=== PATIENT | female | born 1990 | race Caucasian/White ===

== ENCOUNTER 2016-04-08 16:26 | Emergency (ER) | payer OTHER ==
[~2016-04-08] VITALS: Ht 157.5 cm; Wt 62.0 kg
[~2016-04-08 16:26] MED LIST: IBUP-232 PO
[2016-04-08 16:40] VITALS: BP 131/80; PULSE 62; RESP 16; TEMP 98.8; O2SAT 98
[2016-04-08] MEDS ORDERED: BIRTH CONTROL PO (16:57)
[2016-04-08] MEDS ORDERED: SODIUM CHLOR 0.9% 1000 ML INJ 1,000 ML IV ONE (17:18)
[2016-04-08] MEDS ORDERED: SODIUM CHLORIDE 0.9% FLUSH 5 ML FLUSH IVF PRN (17:30)
[2016-04-08] MEDS ORDERED: METOCLOPRAMIDE HCL 10 MG/2 ML VIAL IVP ONE (17:30)
[2016-04-08] MEDS ORDERED: KETOROLAC TROMETHAMINE 30 MG/ML (IVP) VIAL IVP ONE (17:30)
--- NOTE | 2016-04-08 17:31 | PD ---
HPI Chief Complaint: Headache Time Seen by Provider: 17:04 Travel History International Travel<30 days: No Contact w/Intl Traveler<30days: No Traveled to known affect area: No History of Present Illness HPI Patient is a 25-year-old female who presents to emergency room with complaints of a headache. Patient reports that her headache began last night at midnight, reports that she feels sharp stabbing pain to the right side of her head. Patient reports that she has mild photophobia with symptoms. Denies any vision changes or blurry vision. Reports that she does feel slightly nauseous and has not had any episodes of emesis. Reports that she was seen in the ER previously for similar symptoms, reports that symptoms did resolve after a dose of IV Toradol. Patient reports that she did follow up with neurologist as outpatient , reports that she was just told that she has some "ice pick headaches" and was told that she wasn't sure why she was having these symptoms. Denies fever/ chills. Denies n/v. Denies trauma to head/neck. Denies chest pain/sob. Patient with no other c/o. 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) Headaches: Yes (SAW NEUROLOGIST NOV 2014) Neurologic: Yes (MRI OF HEAD:12/11/14) Reproductive: Yes (CERVICAL DYSPLASIA: COLPOSCOPY: 2013) Immunizations Current: Yes Pneumonia: Yes (CHILDHOOD) Thyroid Disease: Yes (HYPOTHYROIDISM?) Tetanus Vaccination: < 5 Years Influenza Vaccination: Yes ?: Not LMP: 04/05/16 : 0 Ovarian Cysts: Yes Past Surgical History Oral Surgery: Yes (WISDOM TEETH) Family History Family History: Negative Social History Alcohol Use: No Tobacco Use: No Substance Use: No Allergies-Medications (Allergen,Severity, Reaction): Coded Allergies: Peanut (Verified Allergy, Severe, RED, ITCHY RASH, 04/08/16) Reported Meds & Prescriptions Reported Meds & Active Scripts Active Reported [ Control] 1 Tab PO DAILY Review of Systems General / Constitutional: No: Fever Eyes: No: Visual changes HENT: No: Headaches Cardiovascular: No: Chest Pain or Discomfort Respiratory: No: Shortness of Breath Gastrointestinal: No: Abdominal Pain Genitourinary: No: Dysuria Musculoskeletal: No: Pain Skin: No Rash Neurologic: Positive: Headache, No: Weakness, Dizziness, Syncope, Focal Abnormalities, Coordination Problem, Change in Mentation, Slurred Speech Psychiatric: No: Depression Endocrine: No: Polydipsia Hematologic/Lymphatic: No: Easy Bruising Physical Exam Narrative GENERAL: nad, nontoxic SKIN: Warm and dry. HEAD: Atraumatic. Normocephalic. EYES: Pupils equal and round. No scleral icterus. No injection or drainage. ENT: No nasal bleeding or discharge. Mucous membranes pink and moist. NECK: Trachea midline. No JVD. CARDIOVASCULAR: Regular rate and rhythm. No murmur appreciated. RESPIRATORY: No accessory muscle use. Clear to auscultation. Breath sounds equal bilaterally. GASTROINTESTINAL: Abdomen soft, non-tender, nondistended. MUSCULOSKELETAL: No obvious deformities. No clubbing. No cyanosis. No edema. NEUROLOGICAL: Awake and alert. No obvious cranial nerve deficits. Motor grossly within normal limits. Normal speech. CN 2-12 grossly intact with no deficits PSYCHIATRIC: Appropriate mood and affect; insight and judgment normal. Data Data Last Documented VS Vital Signs Date Time Temp Pulse Resp B/P Pulse Ox O2 Delivery O2 Flow Rate FiO2 04/08/16 16:40 98.8 62 16 131/80 98 Orders Complete Blood Count With Diff (04/08/16 17:18) Basic Metabolic Panel (Bmp) (04/08/16 17:18) Ct Brain W/O Iv Contrast(Rout) (04/08/16 17:18) Iv Access Insert/Monitor (04/08/16 17:18) Sodium Chloride 0.9% Flush (Ns Flush) (04/08/16 17:30) Ketorolac Inj (Toradol Inj) (04/08/16 17:30) Metoclopramide Inj (Reglan Inj) (04/08/16 17:30) Sodium Chlor 0.9% 1000 Ml Inj (Ns 1000 M (04/08/16 17:18) Ed Urine Pregnancytest Poc (04/08/16 17:22) Labs Laboratory Tests Test 04/08/16 17:40 White Blood Count 7.4 TH/MM3 Red Blood Count 4.45 MIL/MM3 Hemoglobin 13.1 GM/DL Hematocrit 37.8 % Mean Corpuscular Volume 84.9 FL Mean Corpuscular Hemoglobin 29.3 PG Mean Corpuscular Hemoglobin 34.5 % Concent Red Cell Distribution Width 11.5 % Platelet Count 275 TH/MM3 Mean Platelet Volume 8.1 FL Neutrophils (%) (Auto) 73.2 % Lymphocytes (%) (Auto) 20.4 % Monocytes (%) (Auto) 4.4 % Eosinophils (%) (Auto) 1.4 % Basophils (%) (Auto) 0.6 % Neutrophils # (Auto) 5.5 TH/MM3 Lymphocytes # (Auto) 1.5 TH/MM3 Monocytes # (Auto) 0.3 TH/MM3 Eosinophils # (Auto) 0.1 TH/MM3 Basophils # (Auto) 0.0 TH/MM3 CBC Comment DIFF FINAL Differential Comment Sodium Level 143 MEQ/L Potassium Level 3.7 MEQ/L Chloride Level 109 MEQ/L Carbon Dioxide Level 25.1 MEQ/L Anion Gap 9 MEQ/L Blood Urea Nitrogen 8 MG/DL Creatinine 0.70 MG/DL Estimat Glomerular Filtration 100 ML/MIN Rate Random Glucose 88 MG/DL Calcium Level 8.8 MG/DL MDM Medical Decision Making Medical Screen Exam Complete: Yes Emergency Medical Condition: Yes Interpretation(s) Vital Signs Date Time Temp Pulse Resp B/P Pulse Ox O2 Delivery O2 Flow Rate FiO2 04/08/16 16:40 98.8 62 16 131/80 98 Differential Diagnosis Cephalgia, migraine, intracranial hemorrhage, intracranial mass, electrolyte abnormality Narrative Course Patient is a 25-year-old female who presents to emergency room with complaints of a headache. She reports that she has a sharp stabbing pain to the right side of her head which began yesterday night around midnight. Reports that symptoms feel similar to the past when she has had a headache before. CT head ordered. IV Toradol and reglan ordered for patient Patient reevaluated, patient feeling much better. Patient with resolution of symptoms. I did review all labs and all studies with patient in detail. Patient will follow-up with her neurologist and primary care doctor and return to ER as needed. Signs and symptoms of when to return to emergency room was reviewed with patient in detail. Diagnosis Primary Impression: Cephalgia Qualified Code: R51 - Nonintractable headache, unspecified chronicity pattern , unspecified headache type Patient Instructions: General Instructions Additional Instructions: please follow up with your primary care doctor/neurologist as soon as possible return to ER as needed return to ER if symptoms worsen or progress Disposition: 01 DISCHARGE HOME Condition: Stable Renay Chowdhury DO Apr 08, 2016 17:31
[2016-04-08 17:46] LABS: AUTOMATED NEUTROPHIL # 5.5 TH/MM3 (1.8-7.7); BASOPHIL % 0.6 % (0.0-2.0); EOSINOPHIL # 0.1 TH/MM3 (0-0.4); EOSINOPHIL % 1.4 % (0.0-4.0); HEMATOCRIT 37.8 % (35.0-46.0); HEMO FLAGS DIFF FINAL; LYMPH % 20.4 % (9.0-44.0); LYMPHOCYTE # 1.5 TH/MM3 (1.0-4.8); MEAN CELL VOLUME 84.9 FL (80.0-100.0); MEAN CORPUSCULAR HEMOGLOBIN 29.3 PG (27.0-34.0); MEAN CORPUSCULAR HGB CONC 34.5 % (32.0-36.0); MONO % 4.4 % (0.0-8.0); NEUT % 73.2 % (16.0-70.0); PLATELET COUNT 275 TH/MM3 (150-450); RED BLOOD COUNT 4.45 MIL/MM3 (4.00-5.30); RED CELL DISTRIBUTION WIDTH 11.5 % (11.6-17.2); WHITE BLOOD COUNT 7.4 TH/MM3 (4.0-11.0)
[2016-04-08 18:03] LABS: POTASSIUM 3.7 MEQ/L (3.5-5.1)
[2016-04-08 18:06] LABS: BICARBONATE 25.1 MEQ/L (21.0-32.0)
--- NOTE | 2016-04-08 18:36 | RADHPO ---
EXAM DATE/TIME: 04/08/2016 17:56 [facility] COMPARISON: CT BRAIN W/O CONTRAST, May 26, 2015, 2:11. INDICATIONS : Right superior cephalgia. RADIATION DOSE: 66.62 CTDIvol (mGy) MEDICAL HISTORY : None SURGICAL HISTORY : None. ENCOUNTER: Initial ACUITY: 1 day PAIN SCALE: 4/10 LOCATION: Right cranial TECHNIQUE: Multiple contiguous axial images were obtained of the head. Using automated exposure control and adj ustment of the mA and/or kV according to patient size, radiation dose was kept as low as reasonably a chievable to obtain optimal diagnostic quality images. FINDINGS: CEREBRUM: The ventricles are normal for age. No evidence of midline shift, mass lesion, hemorrhage or acute in farction. No extra-axial fluid collections are seen. POSTERIOR FOSSA: The cerebellum and brainstem are intact. The 4th ventricle is midline. The cerebellopontine angle i s unremarkable. EXTRACRANIAL: The visualized portion of the orbits is intact. SKULL: The calvaria is intact. No evidence of skull fracture. CONCLUSION: Normal examination. Tk Dale MD on April 08, 2016 at 18:34 Board Certified Radiologist. This report was verified electronically.
[2016-04-08 18:54] VITALS: BP 123/69; PULSE 71; RESP 14; O2SAT 100
== END 2016-04-08 19:14 | disposition home or self-care (01) ==
LOC: PHED 16:26
DX: R51 Headache (principal); E03.9 Hypothyroidism, unspecified
CPT/HCPCS: 70450; 80048; 84703; 85025; 96361; 96374; 99284; J1885; J7030